=== PATIENT | male | born 1975 | race Caucasian/White ===

== ENCOUNTER 2017-06-20 20:39 | Emergency (ER) | payer OTHER ==
[~2017-06-20] VITALS: Ht 182.9 cm; Wt 95.3 kg
[~2017-06-20 20:39] MED LIST: UNOBMED
[2017-06-20 20:45] VITALS: BP 154/84
[2017-06-20] MEDS ORDERED: DiphenhydrAMINE 50mg/ml Inj IM ONE (20:45)
[2017-06-20] MEDS ORDERED: LORazepam Inj 2mg/ml 1ml IM ONE (20:45)
[2017-06-20] MEDS ORDERED: Haloperidol 5mg/ml Inj IM ONE (20:45)
[2017-06-20] MEDS ORDERED: levETIRAcetam 1,000mg/NS100ml 100 ML IVPB ONE (22:00)
[2017-06-20 22:49] VITALS: BP 120/76
--- NOTE | 2017-06-20 22:49 | Emergency Room Report ---
History of Present Illness General Chief Complaint: Seizure Source: Patient, EMS (ANSHU BEDOYA M.D.) Present Illness HPI 41-year-old male presents ED for evaluation. Patient found down at bottom of stairs. face down. Patient has questionable history of seizure. Positive EtOH. EMS states that patient was aggressive and agitated. Spitting. Upon arrival patient agitated unwilling to provide any additional history. Unclear whether patient has ingested drugs. No reported psychiatric history. No other aggravating relieving factors. No other associated symptoms (ANSHU BEDOYA M.D.) Allergies: Coded Allergies: UNABLE TO ASSESS (Unverified , 06/20/17) Patient History Past Medical History: seizures Past Surgical History: none Pertinent Family History: none Social History: Denies: smoking, alcohol use, drug use Immunizations: UTD Reviewed Nursing Documentation: PMH: Agreed, PSxH: Agreed (ANSHU BEDOYA M.D.) Review of Systems All Other Systems: negative except mentioned in HPI (ANSHU BEDOYA M.D.) Physical Exam Vital Signs Date Time Temp Pulse Resp B/P (MAP) Pulse Ox O2 Delivery O2 Flow Rate FiO2 06/20/17 20:34 98.0 133 16 154/84 96 98.1 06/20/17 20:45 Room Air Sp02 EP Interpretation: reviewed, normal General Appearance: lethargic, other - confused Head: normocephalic, atraumatic Eyes: bilateral eye normal inspection, bilateral eye PERRL ENT: hearing grossly normal, normal pharynx, no angioedema, normal voice Neck: full range of motion, supple/symm/no masses Respiratory: chest non-tender, lungs clear, normal breath sounds, speaking full sentences Cardiovascular #1: regular rate, rhythm, no edema Cardiovascular #2: 2+ carotid (R), 2+ carotid (L), 2+ radial (R), 2+ radial (L) , 2+ dorsalis pedis (R), 2+ dorsalis pedis (L) Gastrointestinal: normal bowel sounds, non tender, soft, non-distended, no guarding, no rebound Rectal: deferred Genitourinary: normal inspection, no CVA tenderness Musculoskeletal: back normal, gait/station normal, normal range of motion, non- tender Neurologic: other - agitated/combative Psychiatric: other - agitated/combative Reflexes: 3+ bicep (R), 3+ bicep (L), 3+ tricep (R), 3+ tricep (L), 3+ knee (R) , 3+ knee (L) Skin: normal color, no rash, warm/dry, well hydrated Lymphatic: no adenopathy (ANSHU BEDOYA M.D.) Medical Decision Making Diagnostic Impression: Primary Impression: Seizure disorder Additional Impression: Alcohol intoxication Qualified Codes: F10.920 - Alcohol use, unspecified with intoxication, uncomplicated ER Course History of present with agitation altered mental status. I a was able to get a better history from his partner Krishan. . He said that José Miguel gets frequent drop attacks. He would get confused afterward. No seizure activity. He did say that as a kid, patient was diagnosed with borderline seizure. Patient does not drive. He does have a history of anxiety and takes Xanax. He followup with his DrLeighton but no referral to see a neurologist. He had been to the hospital several times with negative CT and blood work. Because of this, this may be seizure. I gave him Keppra here. Patient alcohol level was very high. This may explain his altered mental status. There is no bleed on the CT scan. We'll discharge home once he is more clinically sober. He has to be sedated because he keep trying to get up and leave. (TANG SMITH M.D.) CT/MRI/US Diagnostic Results CT/MRI/US Diagnostic Results : Imaging Test Ordered: CT head Impression negative per radiologis (TANG SMITH M.D.) Last Vital Signs Date Time Temp Pulse Resp B/P (MAP) Pulse Ox O2 Delivery O2 Flow Rate FiO2 06/20/17 20:45 98.1 133 16 154/84 96 Room Air 98.1 Status: improved (ANSHU BEDOYA M.D.) Disposition: HOME, SELF-CARE Condition: Stable Additional Instructions: Followup with your DrLeighton for workup of possible seizure. You may be referred to see a neurologist. Abstain from alcohol. Go to rehabilitation. Return if worse. Followup with your DrLeighton in 7 days. ANSHU BEDOYA M.D. Jun 20, 2017 22:49 TANG SMITH M.D. Jun 21, 2017 00:01
[2017-06-21] MEDS ORDERED: Haloperidol 5mg/ml Inj IM ONE
[2017-06-21 02:23] VITALS: BP 134/87
[2017-06-21 05:19] VITALS: BP 108/71
[2017-06-21] MEDS ORDERED: KEPPRA500 M4 ORAL (05:45)
[2017-06-21 06:22] VITALS: BP 108/71
--- NOTE | 2017-06-21 11:42 | Diagnostic Imaging Report ---
Indication: Altered mental status Technique: Contiguous 5 mm thick transaxial imaging of the head obtained in a Siemens Sensation [address] scanner. Soft tissue and bone windows generated. Automatic Exposure Control was utilized. Total Dose length Product (DLP): 1446.[address] Dose Index Volume (CTDIvol): 70.38 mGy Comparison: none Findings: The size and configuration of the cortical sulci, basal cisterns, and ventricles are within normal limits for age. There is no mass effect, midline shift, or edema identified. There is no evidence of acute hemorrhage or abnormal intra-axial or extra-axial fluid collections. The bones and soft tissues are unremarkable. Impression: No mass effect, edema or acute bleed. The CT scanner at [facility] is accredited by the [employer] and the scans are performed using dose optimization techniques as appropriate to a performed exam including Automatic Exposure control.
== END 2017-06-21 06:24 | disposition home or self-care (01) ==
LOC: EDBD 20:39 → EMR 22:46
DX: G40.909 Epilepsy, unspecified, not intractable, without status epilepticus (principal); F10.129 Alcohol abuse with intoxication, unspecified
CPT/HCPCS: 36415; 70450; 80307; 96365; 96372; 99284; G0480; J1200; J1630; J1953; 80329